=== PATIENT | female | born 1975 | race Asian ===

== ENCOUNTER 2018-09-05 08:47 | Day surgery (SDC) | payer OTHER ==
[~2018-09-05] VITALS: Ht 152.4 cm; Wt 58.4 kg
[2018-09-05 10:13] VITALS: Ht 152.4 cm; Wt 58.4 kg
[2018-09-05] MEDS ORDERED: FLUT1AER INHALATION (10:20)
[2018-09-05] MEDS ORDERED: LIDOCAINE 4% SOLUTION 50 ML BTL ONE ×2 (10:37→10:41)
[2018-09-05 10:52] VITALS: BP 106/58; PULSE 65; RESP 16
[2018-09-05 10:57] VITALS: BP 99/70; PULSE 76; RESP 17
[2018-09-05 11:02] VITALS: BP 98/52; PULSE 64; RESP 16
[2018-09-05 11:07] VITALS: BP 106/58; PULSE 65; RESP 17
[2018-09-05] MEDS ORDERED: FENTAnyl 50 MCG/ML VIAL ONE (11:15)
[2018-09-05] MEDS ORDERED: MIDAZOLAM 1 MG/ML 2 ML INJ ONE ×2 (11:15)
--- NOTE | 2018-09-05 11:50 | NUR ---
1052H: Received from procedural room s/o Endoscopy Upper GI. Sleepy. VS taken, stable. 1115H: Awake, sitting on chair, wanting to go to the restroom. 1120H: Urinated approximately 300cc urine color urine. Discharge insructions given to patient re: Medications to be taken at home. activity to follow, emphasized that should she experience SOB, and chest pain to call 911 or go to nearest ED, verbalized understanding of health teachings. IVF removed w/o complications. 1136H: Discharged per wheelchair in stable condition accompanied by Spouse.
== END 2018-09-05 12:41 | disposition home or self-care (01) ==
LOC: SDS 08:47 → GIL 08:54 → SDS 12:41
PROVIDERS: ATTEND Internal Medicine Gastroenterology
DX: R12 Heartburn (principal); K29.50 Unspecified chronic gastritis without bleeding
CPT/HCPCS: 43999; 88305; 88312; 88313; J2250; J3010; Z7610